=== PATIENT | male | born 1935 | race Caucasian/White ===

== ENCOUNTER 2017-12-04 15:51 | Emergency (ER) | payer MEDICARE, BC ==
[2017-12-04 16:01] VITALS: BP 137/93
--- NOTE | 2017-12-04 16:32 | EDM.PDOC ---
ED HPI GENERAL MEDICAL PROBLEM - General Chief Complaint: Skin Complaint Stated Complaint: reaction to goo gone on hands Time Seen by Provider: 12/04/17 16:20 Source of Information: Reports: Patient History Limitations: Reports: No Limitations - History of Present Illness INITIAL COMMENTS - FREE TEXT/NARRATIVE: Lobo is an 82 yo male who presents to the ER with concerns of a rash on the top of both hands. States the rash started last week or Sunday. Admits he was using goo gone and his hands started itching. Stopped by the local pharmacy and got some hydrocortisone cream which he states he isn't sure if it has helped. States his skin pealed a little bit and now his hands are itchy. Has noticed the redness to not spread. Denies any other symptoms. Onset Date: 12/28/17 Duration: Improving Location: Reports: Upper Extremity, Left, Upper Extremity, Right - Related Data Allergies Allergy/AdvReac Type Severity Reaction Status Date / Time amlodipine Allergy Rash Verified 12/04/17 16:04 Home Meds: Home Meds Aspirin [Halfprin] 81 mg PO DAILY 06/27/14 [History] Atenolol 50 mg PO DAILY 06/27/14 [History] Atenolol 25 mg PO BEDTIME 12/04/17 [History] Clotrimazole/Betamethasone Dip [Lotrisone Cream] 1 applic TOP BID PRN 12/04/17 [ History] Hydrocortisone [Hydrocortisone 1% Crm] 1 applic TOP ASDIRECTED PRN 12/04/17 [ History] Past Medical History HEENT History: Reports: Cataract, Sinusitis Cardiovascular History: Reports: High Cholesterol, Hypertension Genitourinary History: Reports: Other (See Below) Other Genitourinary History: nocturia Endocrine/Metabolic History: Reports: Vitamin D Deficiency Oncologic (Cancer) History: Reports: Prostate - Past Surgical History HEENT Surgical History: Reports: Cataract Surgery Social & Family History - Tobacco Use Smoking Status *Q: Former Smoker Years of Tobacco use: 50 Used Tobacco, but Quit: Yes Month/Year Tobacco Last Used: quit 20 years ago Second Hand Smoke Exposure: No - Recreational Drug Use Recreational Drug Use: No ED ROS GENERAL - Review of Systems Review Of Systems: ROS reveals no pertinent complaints other than HPI. ED EXAM, SKIN/RASH Exam: See Below Exam Limited By: No Limitations General Appearance: Alert, No Apparent Distress Skin: Erythema, Rash (macular rash to dorsum of bilateral hands. No drainage noted. No blisters noted. Appears to be consistent with contact dermatitis. ). No: Increased Warmth Course - Vital Signs Last Recorded V/S: Last Vital Signs Temp 96.9 F 12/04/17 15:55 Pulse Resp 20 12/04/17 15:55 BP 137/93 H 12/04/17 15:55 Pulse Ox 96 12/04/17 15:55 Departure - Departure Time of Disposition: 16:35 Disposition: Home, Self-Care 01 Condition: Good Clinical Impression: Contact dermatitis Qualifiers: Contact dermatitis type: irritant Contact dermatitis trigger: solvent Qualified Code(s): L24.2 - Irritant contact dermatitis due to solvents - Discharge Information Instructions: Contact Dermatitis, [id number], Hand Dermatitis Forms: ED Department Discharge Additional Instructions: 1) Prednisone 20mg - 2 tablets daily for 5 days 2) May take Benadryl over the counter for itchiness, could cause drowsiness. 3) Follow up in clinic this week with primary. 4) Return if any complications. - Problem List & Annotations (1) Contact dermatitis SNOMED Code(s): 30945272 Code(s): L25.9 - UNSPECIFIED CONTACT DERMATITIS, UNSPECIFIED CAUSE Status: Acute Qualifiers: Contact dermatitis type: irritant Contact dermatitis trigger: solvent Qualified Code(s): L24.2 - Irritant contact dermatitis due to solvents - Problem List Review Problem List Initiated/Reviewed/Updated: No - Assessment/Plan Plan: See additional instructions.
== END 2017-12-04 16:42 | disposition home or self-care (01) ==
LOC: CC.ED 15:51
DX: L24.2 Irritant contact dermatitis due to solvents (principal); E78.00 Pure hypercholesterolemia, unspecified; I10 Essential (primary) hypertension; Z88.8 Allergy status to other drugs, medicaments and biological substances; Z79.82 Long term (current) use of aspirin; Z79.899 Other long term (current) drug therapy; Z87.891 Personal history of nicotine dependence
CPT/HCPCS: 99282

== ENCOUNTER 2019-12-24 16:57 | Observation (INO) | payer MEDICARE, BC ==
--- NOTE | 2019-12-24 17:40 | EDM.PDOC ---
ED HPI GENERAL MEDICAL PROBLEM - General Chief Complaint: General Stated Complaint: leg pain Time Seen by Provider: 12/24/19 17:15 Source of Information: Reports: Patient History Limitations: Reports: Altered Mental Status (pt does have some dementia. Does not remember being told that he has MRI on Sunday after seeing Bandar today.) - History of Present Illness INITIAL COMMENTS - FREE TEXT/NARRATIVE: Has been having left back, hip and leg pain. He states that the pain is only when he bears weight on it. He states if he isnt standing on it he has no pain. He can lift the leg if not weight bearing. If he bears weight the leg gives out on him. He states that the pain shoots down the left leg and is very painful. Onset: Gradual Location: Reports: Lower Extremity, Left - Related Data Allergies Allergy/AdvReac Type Severity Reaction Status Date / Time amlodipine Allergy Rash Verified 12/04/17 16:04 Home Meds: Home Meds Aspirin [Halfprin] 81 mg PO DAILY 06/27/14 [History] atenoloL [Atenolol] 50 mg PO DAILY 06/27/14 [History] Clotrimazole/Betamethasone Dip [Lotrisone Cream] 1 applic TOP BID PRN 12/04/17 [ History] Hydrocortisone [Hydrocortisone 1% Crm] 1 applic TOP ASDIRECTED PRN 12/04/17 [ History] Prednisone [IJD: predniSONE] 40 mg PO WITHBREAKFAST #5 tab 12/04/17 [Rx] atenoloL [Atenolol] 25 mg PO BEDTIME 12/04/17 [History] Past Medical History HEENT History: Reports: Cataract, Sinusitis Cardiovascular History: Reports: High Cholesterol, Hypertension Genitourinary History: Reports: Other (See Below) Other Genitourinary History: nocturia Endocrine/Metabolic History: Reports: Vitamin D Deficiency Oncologic (Cancer) History: Reports: Prostate - Past Surgical History HEENT Surgical History: Reports: Cataract Surgery Social & Family History - Tobacco Use Smoking Status *Q: Never Smoker - Living Situation & Occupation Living situation: Reports: , Alone Occupation: Retired ED ROS GENERAL - Review of Systems Review Of Systems: See Below Constitutional: Denies: Fever, Chills Musculoskeletal: Reports: Leg Pain Skin: Reports: No Symptoms ED EXAM, GENERAL - Physical Exam Exam: See Below Exam Limited By: Altered Mental Status General Appearance: Alert Ears: Normal External Exam, Normal TMs Throat/Mouth: Normal Inspection, Normal Oropharynx Head: Atraumatic, Normocephalic Neck: Normal Inspection, Supple, Non-Tender Respiratory/Chest: No Respiratory Distress, Lungs Clear, Normal Breath Sounds Cardiovascular: Regular Rate, Rhythm GI/Abdominal: Normal Bowel Sounds, Soft, Non-Tender Extremities: Normal Inspection, Normal Capillary Refill, Other (Has good strength to left lower leg when not wieght bearing. If he bears weight even with the assistance of the walker his leg is very painful with sharp shooting pain down the leg and then the leg gives out. He states that it feels like it starts in the left thigh and then will wrap around into the left hip and back. He was not able to bear weight with the use of the walker assisting.) Neurological: Alert, Oriented Skin Exam: Warm, Dry, Intact Course - Vital Signs Last Recorded V/S: Last Vital Signs Temp 97.2 F 12/24/19 17:03 Pulse 80 12/24/19 17:03 Resp 18 12/24/19 17:03 BP 177/80 H 12/24/19 17:03 Pulse Ox 98 12/24/19 17:03 - Re-Assessments/Exams Free Text/Narrative Re-Assessment/Exam: 12/24/19 17:[address] Flores and he agrees with observation admission with PT consult and will keep appt for MRI on Sunday as scheduled. Will start some steroids and help with pain control. Departure - Departure Time of Disposition: 17:55 Disposition: Refer to Observation Condition: Good Clinical Impression: Left leg pain, Inability to bear weight Back pain Qualifiers: Back pain location: low back pain Chronicity: acute Back pain laterality: left Sciatica presence: without sciatica Qualified Code(s): M54.5 - Low back pain - Discharge Information *PRESCRIPTION DRUG MONITORING PROGRAM REVIEWED*: Not Applicable *COPY OF PRESCRIPTION DRUG MONITORING REPORT IN PATIENT KRISTOPHER: Not Applicable Forms: ED Department Discharge Sepsis Event Note - Focused Exam Vital Signs: Vital Signs Temp Pulse Resp BP Pulse Ox 12/24/19 17:03 97.2 F 80 18 177/80 H 98 Date Exam was Performed: 12/24/19 Time Exam was Performed: 18:00 - Problem List & Annotations (1) Inability to bear weight SNOMED Code(s): 487672354 Code(s): R26.89 - OTHER ABNORMALITIES OF GAIT AND MOBILITY Status: Acute Priority: High (2) Back pain SNOMED Code(s): 501284633 Code(s): M54.9 - DORSALGIA, UNSPECIFIED Status: Acute Priority: High Qualifiers: Back pain location: low back pain Chronicity: acute Back pain laterality : left Sciatica presence: without sciatica Qualified Code(s): M54.5 - Low back pain (3) Left leg pain SNOMED Code(s): 994916362 Code(s): M79.605 - PAIN IN LEFT LEG Status: Acute Priority: High - Problem List Review Problem List Initiated/Reviewed/Updated: Yes - Assessment/Plan Admission H&P: Please use this note as an admission H&P
[2019-12-24] MEDS ORDERED: Ketorolac 30 MG/ML SDV IVPUSH ONE (18:24)
[2019-12-24] MEDS ORDERED: Acetaminophen/HYDROcodone 325-5 MG Tab PO PRN (18:24)
[2019-12-24] MEDS ORDERED: Sodium Chloride 0.9% 10 ML Syringe FLUSH PRN (18:24)
[2019-12-24] MEDS: methylPREDNISolone Sodium Succinate 125 MG/2 ML SDV IVPUSH SCH (18:54)
[2019-12-24] MEDS: LOSARTAN POTASSIUM 50 MG PO SCH (19:59)
[2019-12-24] MEDS ORDERED: LOSARTAN POTASSIUM 50 MG PO SCH (20:00)
[2019-12-24] MEDS ORDERED: Enoxaparin 30 MG/0.3 ML Syringe SUBCUT ONE (22:00)
[2019-12-25] MEDS ORDERED: Donepezil 5 MG Tab PO SCH (08:00)
[2019-12-25] MEDS ORDERED: Non-Formulary Medication 1 Each (Ferrous Sulfate [Iron] 325 MG) PO SCH (08:00)
[2019-12-25] MEDS: LOSARTAN POTASSIUM 50 MG PO SCH ×2 (08:12→19:43)
[2019-12-25] MEDS: DONEPEZIL 5 MG PO SCH (08:12)
[2019-12-25] MEDS: Ferrous Sulfate 324 MG Tab.EC PO SCH (08:15)
[2019-12-25] MEDS: Aspirin 81 MG Tab.EC PO SCH (08:15)
--- NOTE | 2019-12-25 16:54 | PN ---
DATE: 12/25/2019 S: Mr. Ko was admitted for left lower extremity radiculopathy, was unable to bear weight, having a lot of pain. 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 Ozzy Ayala evaluated him yesterday morning, set him up for an MRI this Sunday. He came back to our facility because he was unable to walk. Iliana Jamie evaluated him and put him in for observation. He feels better today. He did get some IV Solu-Medrol, and for the most part, has been feeling improvement. MRI is scheduled for tomorrow morning. O: On physical exam, he does have some discomfort around the L4-5 region to palpation in the paraspinal region on the left side. His reflexes remain brisk in the left leg. He has normal sensation. The only weakness I can identify is with hip flexion and it is mild compared to his right. ASSESSMENT: LUMBAR DISK SYNDROME. P: We will put him on a daily Celebrex and continue with Solu-Medrol for now and plan MRI in the morning and hopefully discharge. He will need aggressive conservative therapy as an outpatient assuming things continue to improve. TAMAR/STEPHANIE /[id number]
[2019-12-25] MEDS: methylPREDNISolone Sodium Succinate 125 MG/2 ML SDV IVPUSH SCH (18:02)
[2019-12-25] MEDS: Celecoxib 100 MG Cap PO SCH (18:02)
[2019-12-25] MEDS ORDERED: Cyclobenzaprine 10 MG Tab PO SCH (20:00)
[2019-12-25] MEDS ORDERED: Enoxaparin 40 MG/0.4 ML Syringe SUBCUT SCH (21:00)
[2019-12-26] MEDS: Aspirin 81 MG Tab.EC PO SCH (07:27)
[2019-12-26] MEDS: Celecoxib 100 MG Cap PO SCH (07:27)
[2019-12-26] MEDS: Ferrous Sulfate 324 MG Tab.EC PO SCH (07:27)
[2019-12-26] MEDS: DONEPEZIL 5 MG PO SCH (07:27)
[2019-12-26] MEDS: LOSARTAN POTASSIUM 50 MG PO SCH (07:28)
[2019-12-26 08:11] VITALS: BP 142/76; PULSE 71
--- NOTE | 2019-12-26 20:44 | DISCH ---
ADMISSION DIAGNOSES: 1. Acute lumbar disk syndrome. 2. Hypertension. 3. Dementia. DISCHARGE DIAGNOSIS: 1. ACUTE LUMBAR DISK SYNDROME. 2. HYPERTENSION. 3. DEMENTIA. HISTORY: The patient had been seen in the clinic on the day of admit for radicular pain coming from his back down his left leg. He was set up for an MRI and sent home with conservative cares. He ultimately came back saying he was having a hard time walking and falling as he could bear weight and he was admitted for observation by Iliana Ayala. HOSPITAL COURSE: Over the last 2 days, the patient has gotten some IV Solu- Medrol, routine PT, started on Celebrex, and he has done much better. His pain is minimal. He is able to ambulate. He had an MRI this morning, we are waiting on final report, but looks like he has an at least 3-level disk bulge at 2-3 and at 4-5, quite large. Given him some compression. I think it is the 4-5 one giving him symptoms down his lateral leg and into the foot. At this time, he feels comfortable with conservative measures, feels he can go home. We are going to keep him on Celebrex b.i.d. and Flexeril just at night. He will be scheduled for outpatient physical therapy. I will see him back in the clinic this upcoming Sunday for followup. It is worthy of note, he has been having significant memory issues. There have been no family members around for us to learn, he has been operating heavy equipment. I would like a family consult with him about this, this upcoming Sunday. COMPLICATIONS: During his stay are none. CONSULTATIONS: PT. PROCEDURES: MRI lumbar spine. DISPOSITION: Discharged home. TAMAR/STEPHANIE /[id number]
== END 2019-12-26 13:30 | disposition home or self-care (01) ==
LOC: CC.ED 16:57 → UNDOADMOB 18:00 → CC.MS 18:00
PROVIDERS: ADMIT Physician Assistant Medical; ATTEND Family Medicine
DX: M54.5 Low back pain (principal); M79.605 Pain in left leg; R26.89 Other abnormalities of gait and mobility; E78.00 Pure hypercholesterolemia, unspecified; I10 Essential (primary) hypertension; F03.90 Unspecified dementia, unspecified severity, without behavioral disturbance, psychotic disturbance, mood disturbance, and anxiety; Z88.8 Allergy status to other drugs, medicaments and biological substances; Z79.82 Long term (current) use of aspirin; Z79.899 Other long term (current) drug therapy
CPT/HCPCS: 36415; 72148; 80048; 96372; 96374; 96375; 96376; 97161-GP; 99217; 99220; 99225; 99284-25; A9270-GY; G0378; J1650; J1885; J2930

== ENCOUNTER 2023-06-03 13:22 | Emergency (ER) | payer MEDICARE, BC ==
[2023-06-03 14:00] LABS: BASOPHILS ABSOLUTE AUTO 0.01 10^3/uL (0.00-0.50); BASOPHILS PERCENT AUTO 0.1 % (0-1); EOSINOPHILS ABSOLUTE AUTO 0.04 10^3/uL (0.00-1.50); EOSINOPHILS PERCENT AUTO 0.5 % (0-6); HEMATOCRIT 38.2 % (42.0-52.0); HEMOGLOBIN 13.4 g/dL (14.0-18.0); IMMATURE GRAN ABSOLUTE AUTO 0.02 10^3/uL (0.00-0.49); IMMATURE GRAN PERCENT AUTO 0.3 % (0.0-4.9); LYMPHOCYTES ABSOLUTE AUTO 0.25 10^3/uL (0.60-5.00); LYMPHOCYTES PERCENT AUTO 3.4 % (24-44); MEAN CORPUSCULAR HEMOGLOBIN 31.5 pg (27.0-32.0); MEAN CORPUSCULAR HGB CONC 35.1 g/dL (32.0-36.0); MEAN CORPUSCULAR VOLUME 89.9 fL (83.0-97.0); NEUTROPHILS ABSOLUTE AUTO 6.79 x10^3/uL (1.80-8.00); NEUTROPHILS PERCENT AUTO 91.7 % (41-71); PLATELET COUNT,PLT 100 10^3/uL (150-400); RED BLOOD CELL COUNT 4.25 x10^6/uL (4.50-6.00); WHITE BLOOD CELL COUNT,WBC 7.4 10^3/uL (4.0-11.0)
[2023-06-03 14:03] LABS: APPEARANCE,URINE CLEAR (CLEAR); BILIRUBIN,URINE NEGATIVE (NEGATIVE); COLOR,URINE YELLOW (YELLOW); GLUCOSE,URINE NEGATIVE (NEGATIVE); KETONES,URINE NEGATIVE (NEGATIVE); LEUKOCYTE ESTERASE,URINE NEGATIVE (NEGATIVE); NITRITE,URINE NEGATIVE (NEGATIVE); OCCULT BLOOD,URINE TRACE-LYSED (NEGATIVE); PROTEIN,URINE TRACE mg/dL (NEGATIVE); UROBILINOGEN,URINE 0.2 EU/dL (0.2-1.0)
[2023-06-03 14:15] VITALS: BP 161/76; PULSE 93
[2023-06-03 14:18] LABS: ALBUMIN 3.6 g/dL (3.4-5.0); BILIRUBIN TOTAL 0.7 mg/dL (0.0-1.0); C-REACTIVE PROTEIN 0.61 mg/dL (<=0.30); CREATININE 1.4 mg/dL (0.7-1.3); EST CRCL DRUG DOSING (CG) 40.34 mL/min; PROTEIN TOTAL,TP 6.8 g/dL (6.4-8.2)
[2023-06-03 14:19] LABS: RBC,URINE 0-5 /HPF (0-5); WBC,URINE 0-5 /HPF (0-5)
[2023-06-03 14:20] LABS: BACTERIA,URINE OCCASIONAL /HPF (NOT SEEN); MUCUS,URINE MANY /HPF (NOT SEEN); SQUAMOUS EPITHELIAL CELLS,UR OCCASIONAL /HPF (NOT SEEN)
[2023-06-03 14:36] LABS: INFLUENZA A NAA NEGATIVE (NEGATIVE); INFLUENZA B NAA NEGATIVE (NEGATIVE); RESPIRATORY SYNCYTIAL VIR NAA NEGATIVE (NEGATIVE)
[2023-06-03 14:37] LABS: CORONAVIRUS COVID-19 NAA POSITIVE (NEGATIVE)
[2023-06-03] MEDS ORDERED: Nirmatrelvir/Ritonavir 150 MG/100 MG Dose Pack PO SCH (15:00)
== END 2023-06-03 15:18 | disposition home or self-care (01) ==
LOC: CC.ED 13:22
DX: U07.1 COVID-19 (principal); I10 Essential (primary) hypertension; Z79.899 Other long term (current) drug therapy; Z88.8 Allergy status to other drugs, medicaments and biological substances
CPT/HCPCS: 0241U; 36415; 71046; 80053; 81001; 85025; 86140; 99284; A9270